=== PATIENT | female | born 1945 | race Hispanic/Latino ===

== ENCOUNTER 2017-05-23 07:47 | Day surgery (SDC) | payer OTHER ==
[~2017-05-23] VITALS: Ht 152.4 cm; Wt 61.5 kg
[~2017-05-23 07:47] MED LIST: CHOL50004 PO; ERGO500014 PO; GABA-529 PO; GLIP10TA9 PO; LOSA25TA21 PO; METF10004 PO; NAPR220C15 PO; OMEP40CA37 PO; SIMV80TA7 PO; SITA100T12 PO; SODIUM CHLORIDE 0.9% 1000ML 1,000 ML IV ONE; UBID100C10 PO; XALA2.5OS OU
[2017-05-23 08:07] VITALS: BP 175/55
[2017-05-23] MEDS ORDERED: PROPOFOL 10 MG/ML 20ML VIAL IV ONE (09:42)
[2017-05-23 10:02] VITALS: BP 91/36
== END 2017-05-23 10:45 | disposition home or self-care (01) ==
LOC: DAH 07:47 → ENDO 07:47
PROVIDERS: ATTEND Internal Medicine Gastroenterology
DX: Z09 Encounter for follow-up examination after completed treatment for conditions other than malignant neoplasm (principal); Z86.010 Personal history of colon polyps; I10 Essential (primary) hypertension; E78.5 Hyperlipidemia, unspecified; K57.30 Diverticulosis of large intestine without perforation or abscess without bleeding; E11.9 Type 2 diabetes mellitus without complications; M19.90 Unspecified osteoarthritis, unspecified site; H40.9 Unspecified glaucoma; Z79.899 Other long term (current) drug therapy; Z79.84 Long term (current) use of oral hypoglycemic drugs; Z98.890 Other specified postprocedural states
CPT/HCPCS: 82948 ×2; 93005; A4606; G0105; J2704; J7030

== ENCOUNTER → 2019-08-20 | Outpatient (CLI) | payer OTHER ==
[~2019-08-20] MED LIST changes: -LOSA25TA21 PO; +LOSA25TA41 PO; +METF-446 PO; -METF10004 PO; +OMEP40CA13 PO; -OMEP40CA37 PO; -SIMV80TA7 PO; +SIMV80TA91 PO; -SODIUM CHLORIDE 0.9% 1000ML 1,000 ML IV ONE
== END | disposition home or self-care (01) ==
LOC: RAH 12:27
PROVIDERS: ATTEND Internal Medicine
DX: I67.82 Cerebral ischemia (principal); G31.89 Other specified degenerative diseases of nervous system; I10 Essential (primary) hypertension
CPT/HCPCS: 70450